=== PATIENT | female | born 1945 | race Caucasian/White ===

== ENCOUNTER → 2024-08-01 09:24 | Outpatient (REF) | payer MEDICARE, BC, SELFPAY ==
[2024-08-01 10:06] LABS: % Basophils 0.3 % (0-2); % Eosinophils 1.8 % (0-6); % Immature Granulocytes 0.3 % (0-0.5); % Lymphocytes 34.8 % (20.5-51.1); % Monocytes 9.2 % (1.7-9.3); % Neutrophils 53.6 % (42.2-75.2); Absolute Eosinophils 0.1 10^3/uL (0-0.7); Absolute Lymphocytes 2.1 10^3/uL (1.2-3.4); Absolute Monocytes 0.6 10^3/uL (0.1-0.6); Absolute Neutrophils 3.3 10^3/uL (1.4-6.5); Hematocrit 43.1 % (37.0-47.0); Hemoglobin 14.3 g/dL (12.0-16.0); Mean Corp Hgb Conc. 33.2 g/dL (33.0-37.0); Mean Corpuscular Hgb 31.3 pg (27.0-31.0); Mean Corpuscular Volume 94.3 fL (81.0-99.0); Mean Platelet Volume 9.7 fL (7.4-10.4); Nucleated Red Blood Cells % 0 %; Platelet Count 219 10^3/uL (130-400); Red Blood Cell Count 4.57 10^6/uL (4.20-5.40); Red Cell Dist. Width 12.2 % (11.5-14.5); White Blood Cell Count 6.1 10^3/uL (4.8-10.8)
[2024-08-01 12:47] LABS: ALT (SGPT) 28 U/L (0-35); AST (SGOT) 22 U/L (14-36); Albumin 4.9 g/dl (3.5-5.0); Alkaline Phosphatase 78 U/L (38-126); Blood Urea Nitrogen 14 mg/dl (7-17); Calcium 9.3 mg/dl (8.4-10.2); Carbon Dioxide 24 mmol/L (22-30); Chloride 108 mmol/L (98-107); Glucose 98 mg/dl (70-99); HDL Cholesterol 61 mg/dl; LDL Cholesterol, Calculated 167 mg/dl; Potassium 4.1 mmol/L (3.5-5.1); Sodium 140 mmol/L (135-145); Total Bilirubin 0.9 mg/dl (0.2-1.3); Total Cholesterol 255 mg/dl (50-199); Total Protein 7.3 g/dl (6.3-8.2); Triglyceride 137 mg/dl (10-149); Very Low Density Lipoprotein 27 mg/dl (0-30); eGFR > 60.00
[2024-08-01 15:00] LABS: TSH Reflex To Free T4 1.96 uIU/ml (0.47-4.68)
== END ==
LOC: REG 09:24
PROVIDERS: ATTENDING PHYSICIAN Family Medicine
DX: I70.0 Atherosclerosis of aorta (principal); E78.00 Pure hypercholesterolemia, unspecified; R53.83 Other fatigue
CPT/HCPCS: 36415; 80053; 80061; 84443; 85025

== ENCOUNTER 2024-10-25 12:29 | Emergency (ER) | payer MEDICARE, BC, SELFPAY ==
[2024-10-25 12:29] VITALS: BMI 30.3
[2024-10-25 12:32] VITALS: BP 219/120
--- NOTE | 2024-10-25 16:48 | ED.GENMED ---
History of Present Illness
General
Chief Complaint: Skin Problem
Source: patient
Exam Limitations: none
Time Seen by Provider: 10/25/24 16:25
History of Present Illness
History of Present Illness:
79yoF with a history of meniscus tears bilaterally presenting for evaluation after a fall last night. She slipped on slippery [place] and injured her right knee. She also sustained a laceration to the left lower leg. There was no head
strike or loss of consciousness. She is presenting with right knee pain and swelling. She denies any other injuries and she does not take any blood thinners. Unknown last Tdap.
Past History
Past History
ED Past Medical History: Negative Asthma, HTN, Hypercholesterolemia or NIDDM
ED Past Surgical History: None
Social History
Tobacco: Non-smoker
Alcohol: Occasional
Personal:
Living: with family
Phy Exam
General Physical Exam
General Presentation: well appearing and no apparent distress
General Skin: warm and dry
General Habitus: normal
General Mental: alert
ENT Exam
ENT Exam: normocephalic
Neurological Exam
Neurological Exam: alert
Clint Coma Scale
Eye Opening: Spontaneous
Verbal Response: Oriented
Motor Response: Obeys Commands
GCS Total Score: 15
Musculoskeletal Exam
Musculoskeletal Exam: other (R knee: Effusion noted with tenderness to the lateral joint line. No deformity or skin changes. ROM decreased 2/2 pain, able to flex to about 70-80 degrees. 2+ DP pulse and sensation intact.)
Skin Exam
Skin Exam: normal color, warm/dry and other (Approx 6cm laceration noted to the left anterior lower leg that is moderately gaping and unable to be approximated. No bony tenderness in L lower leg. 2+ DP pulse.)
Psychiatric Exam
Psychiatric Exam: normal mood/affect
Course
Orders/Labs/Results
Orders:
Orders
10/25/24 12:35
Knee, Right 4 or More Views [CR Knee- Right 4 Or More View*] Urgent
Comment:
Reason For Exam: pain
10/25/24 17:09
Knee Immobilizer Right-Treatme ONCE
Tetanus/Diphth/Acelpertussis [Adacel] 0.5 ml IM .ONCE ONE
Vital Signs
Initial and Last Documented VS:
Initial Vital Signs
Temp Pulse Resp BP Pulse Ox
98.5 F 87 18 219/120 98
10/25/24 12:32 10/25/24 12:32 10/25/24 12:32 10/25/24 12:32 10/25/24 12:32
Last Documented Vital Signs
Temp Pulse Resp BP Pulse Ox
98.5 F 87 18 219/120 98
10/25/24 12:32 10/25/24 12:32 10/25/24 12:32 10/25/24 12:32 10/25/24 16:51
MDM/Problems Addressed
Differential Diagnosis Includes:
79yoF here after a fall yesterday. C/o R knee pain and has a prior hx of a meniscus repair. Also sustained a laceration to the left lower leg that is moderately gaping without active bleeding. R knee effusion noted on exam with mildly decreased ROM.
Differential diagnosis includes: fracture, meniscus injury, ligamentous injury
Laceration irrigated with saline. Will defer suture repair as wound is unable to be approximated and is >24 hours old. Steri-strips applied for support and dressing applied. Knee x-rays negative for fracture. Knee immobilizer applied given effusion
and concern for ligament vs. meniscus injury. Tdap updated. Home wound care discussed. Advised f/u with orthopedics and wound care. She was instructed to return to the ED with any signs of infection.
*Pulse Oximetry
SaO2: 98
Oxygen Mode of Delivery: Room air
Patient hypoxic: no (98%)
*Critical Care Note
Total Time (30-74mins, 75-104mins- exclusive of procedures): Not Applicable
Update Note
Update Note:
BP 219/120 in triage. She last saw her PCP 1 month ago and BP was normal. Patient believes this is from the anxiety and stress of being in the hospital. She is asymptomatic from this perspective.
ED Attending Note
-
Portions of this chart may have been created with voice recognition software.� Occasional wrong word or��sound alike� substitutions may have occurred due to the inherent limitations of voice recognition software.
Discharge Plan
Departure
Patient Disposition: Home (Routine Discharge)
Date of Disposition: 10/25/24
Time of Disposition: 17:10
Patient with high blood pressure during this ER visit?: Yes
Discharge Problem:
Right knee injury, Laceration of left lower leg
Instructions: Taking care of cuts, scrapes, and puncture wounds, Knee Sprain ED
Prescriptions:
No Action
multivitamin 1 EACH tablet
DAILY
vitamin B complex 1 TAB tablet
DAILY
Oil Of [place]
DAILY
Vitamin D3
DAILY
ondansetron 4 MG tablet,disintegrating
4 mg PO Q8HPRN PRN (Reason: Nausea/Vomiting) Qty: 10 0RF
tamsulosin 0.4 MG capsule
0.4 mg PO DAILY Qty: 5 0RF
oxycodone-acetaminophen 5 MG/325 MG tablet
1 tab PO Q4HPRN PRN (Reason: Pain) Qty: 10 0RF
ibuprofen 600 MG tablet
600 mg PO Q6HPRN PRN (Reason: pain) Qty: 15 0RF
Rx Instructions:
Please take with food
Referrals:
[facility] [Outside]
Jordy Garcia MD [Active, Orthopedics]
Shilpi Claros MD [Family Provider, Family Practice]
Activity Restrictions/Additional Instructions:
Wear knee immobilizer. Change wound dressings daily and keep clean and dry.
Please follow-up with orthopedics and the wound center. Return to the ER with any signs of infection.
Interventions
Interventions:
*Risk Screen - Suicide Last Done: 10/25/24 12:32
*General Assessment Last Done: 10/25/24 12:32
*Neglect/Abuse Screening Last Done: 10/25/24 12:32
*ED- Fall Risk Assessment Last Done: 10/25/24 12:32
*ED COVID-19 Vaccine History Last Done: 10/25/24 12:32
*Nursing Disposition Last Done: 10/25/24 17:34
ED-Skin Assessment Last Done: 10/25/24 17:34
Discharge Date and Time
Discharge Date/Time: 10/25/24 17:36
Print Language: POLISH
[2024-10-25] MEDS: ADACEL 0.5 ML IM (17:15)
== END 2024-10-25 17:36 | disposition home or self-care (01) ==
LOC: EMR 12:29
PROVIDERS: EMERGENCY PHYSICIAN Emergency Medicine; FAMILY PHYSICIAN Family Medicine
DX: S89.91XA Unspecified injury of right lower leg, initial encounter (principal); S81.812A Laceration without foreign body, left lower leg, initial encounter; R03.0 Elevated blood-pressure reading, without diagnosis of hypertension; Z23 Encounter for immunization; W01.10XA Fall on same level from slipping, tripping and stumbling with subsequent striking against unspecified object, initial encounter
CPT/HCPCS: 99284; 90471; 73564; 90715